=== PATIENT | female | born 1985 | race Caucasian/White ===

== ENCOUNTER 2023-10-20 08:42 | Inpatient (IN) | payer OTHER ==
[2023-10-20] MEDS: LORazepam 1 MG TAB PO STA ×2 (09:52→21:17)
[2023-10-20] MEDS: IBUPROFEN 600 MG TAB PO STA (10:08)
[2023-10-20] MEDS: ONDANSETRON ODT 4 MG TAB PO STA (10:08)
[2023-10-20 10:27] LABS: Appearance,Urine Clear (Clear); Bilirubin,Urine Negative (Negative); Blood,Urine Negative (Negative); Color,Urine Colorless; Glucose,Urine (UA) Negative (Negative); Ketones,Urine 1+ (Negative); Leukocyte Esterase,Urine Negative (Negative); Nitrite,Urine Negative (Negative); Protein,Urine Negative (Negative); Specific Gravity,Urine 1.007 (1.001-1.035); Urobilinogen,Urine <2.0 mg/dL (<2.0)
[2023-10-20 10:41] LABS: Amphetamine Screen,Urine Not Detected (NotDetected); Barbiturate Screen,Urine Not Detected (NotDetected); Benzodiazepines Screen,Urine Not Detected (NotDetected); Cocaine Screen,Urine Not Detected (NotDetected); Methadone Screen, Urine Not Detected (NotDetected); Opiate Screen,Urine Not Detected (NotDetected); Oxycodone Screen, Urine Not Detected (NotDetected); Phencyclidine Screen,Urine Not Detected (NotDetected); Tricyclic Antidepressant,Urine Not Detected (NotDetected); Urn Cannabinoid Scrn Detected (NotDetected)
--- NOTE | 2023-10-20 12:53 | ED ---
Anxiety HPI - General Chief Complaint: Anxiety Stated Complaint: Panick attack Time Seen by Provider: 10/20/23 08:51 Source: patient Mode of arrival: ambulatory - History of Present Illness Initial Comments: 38-year-old female with past medical history of bipolar disorder, noncompliant with her medications who presents to the hospital reporting anxiety symptoms. Patient reports to me that she has had symptoms of intense anxiety which started yesterday. She took one of her Xanax at home last night. Reports it is 0.5 mg but states it did not help her symptoms. States that her head is throbbing and she is nauseated due to how anxious she feels. She is currently not following with a psychiatrist. She does report to 1 previous hospitalization for mental health. States that this was greater than 10 years ago. She was receiving mood medications from her primary care doctor but she felt like they were making her a zombie and therefore she stopped them on her own. I am pulled out of the room by the patient's boyfriend. He states that they have been dating for the past 5 months and he did not have an idea that the patient had a history of bipolar until yesterday. He states that she was making suicidal statements. She told him that she was going to jump in front of a car. She stated that she wanted a knife to "just end it all". He had to call police several times due to her erratic behavior. He was able to coax her to come into the ER today. The patient denies to me any suicidal ideations. The boyfriend does fill out a petition on the patient - Related Data Home Medications: Home Medications Medication Instructions Recorded Confirmed No Known Home Medications 10/20/23 10/20/23 Allergies/Adverse Reactions: Allergies Allergy/AdvReac Type Severity Reaction Status Date / Time No Known Allergies Allergy Verified 10/20/23 16:21 Review of Systems ROS Statement: Those systems with pertinent positive or pertinent negative responses have been documented in the HPI. ROS Other: All systems not noted in ROS Statement are negative. Past Medical History History of Any Multi-Drug Resistant Organisms: None Reported Past Surgical History: Hysterectomy Past Psychological History: Anxiety, Depression Smoking Status: Vaper Past Alcohol Use History: Rare Past Drug Use History: Marijuana General Exam Limitations: no limitations General appearance: alert, other (Crying, yelling) Head exam: Present: atraumatic, normocephalic, normal inspection Eye exam: Present: normal appearance, PERRL, EOMI. Absent: scleral icterus, conjunctival injection, periorbital swelling ENT exam: Present: normal exam, mucous membranes moist Neck exam: Present: normal inspection. Absent: tenderness, meningismus, lymphadenopathy Respiratory exam: Present: normal lung sounds bilaterally. Absent: respiratory distress, wheezes, rales, rhonchi, stridor Cardiovascular Exam: Present: regular rate, normal rhythm, normal heart sounds. Absent: systolic murmur, diastolic murmur, rubs, gallop, clicks GI/Abdominal exam: Present: soft, normal bowel sounds. Absent: distended, tenderness, guarding, rebound, rigid Extremities exam: Present: normal inspection, full ROM, normal capillary refill. Absent: tenderness, pedal edema, joint swelling, calf tenderness Back exam: Present: normal inspection Neurological exam: Present: alert, oriented X3, CN II-XII intact Psychiatric exam: Present: anxious, other (Crying) Skin exam: Present: warm, dry, intact, normal color. Absent: rash Course Vital Signs 10/20/23 10/20/23 10/21/23 08:44 12:59 09:00 Temperature 98.1 F 97.9 F Pulse Rate 80 82 Respiratory 18 18 Rate Blood Pressure 173/101 110/61 124/74 O2 Sat by Pulse 98 98 Oximetry Medical Decision Making - Medical Decision Making Was pt. sent in by a medical professional or institution (KEZIA Fournier, PSYCH ASSISTANT, urgent care, hospital, or assisted...) When possible be specific @ -No Did you speak to anyone other than the patient for history (EMS, parent, family, police, friend...)? What history was obtained from this source @ -Spoke with the patient's boyfriend Did you review nursing and triage notes (agree or disagree)? Why? @ -I reviewed and agree with nursing and triage notes Were old charts reviewed (outside hosp., previous admission, EMS record, old EKG, old radiological studies, urgent care reports/EKG's, assisted records)? Report findings @ -No old charts were reviewed Differential Diagnosis (chest pain, altered mental status, abdominal pain women, abdominal pain men, vaginal bleeding, weakness, fever, dyspnea, syncope, headache, dizziness, GI bleed, back pain, seizure, CVA, palpatations, mental health, musculoskeletal)? @ -Differential Mental Health Depression, anxiety, bipolar, psychosis, schizophrenia, borderline personality, situational depression, adjustment disorder, behavioral disorder, brain tumor, malingering, substance abuse, encephalopathy, medication reaction, dementia, hypothyroidism, degenerative neurologic disorder, lupus.... This is not meant to be all-inclusive list EKG interpreted by me (3pts min.). @ -Not done X-rays interpreted by me (1pt min.). @ -None done CT interpreted by me (1pt min.). @ -None done U/S interpreted by me (1pt. min.). @ -None done What testing was considered but not performed or refused? (CT, X-rays, U/S, labs)? Why? @ -None What meds were considered but not given or refused? Why? @ -None Did you discuss the management of the patient with other professionals (professionals i.e. , PA, PSYCH ASSISTANT, lab, RT, psych nurse, social media community manager, zig zag spring machine operator, teacher, forestry technical officer, protective services case worker)? Give summary @ -Spoke with the EPS nurse who does evaluate the patient Was smoking cessation discussed for >3mins.? @ -No Was critical care preformed (if so, how long)? @ -No Were there social determinants of health that impacted care today? How? (Homelessness, low income, unemployed, alcoholism, drug addiction, transportation, low edu. Level, literacy, decrease access to med. care, prison, rehab)? @ -No Was there de-escalation of care discussed even if they declined (Discuss DNR or withdrawal of care, Hospice)? DNR status @ -No What co-morbidities impacted this encounter? (DM, HTN, Smoking, COPD, CAD, Cancer, CVA, ARF, Chemo, Hep., AIDS, mental health diagnosis, sleep apnea, morbid obesity)? @ -Bipolar disorder Was patient admitted / discharged? Hospital course, mention meds given and route, prescriptions, significant lab abnormalities, going to OR and other pertinent info. @ -Patient will be transferred to a psychiatric facility. She was petitioned by her boyfriend and certified by myself. Undiagnosed new problem with uncertain prognosis? @ -No Drug Therapy requiring intensive monitoring for toxicity (Heparin, Nitro, Insulin, Cardizem)? @ -No Were any procedures done? @ -No Diagnosis/symptom? @ -Acute depression, suicidal ideations, bipolar disorder Acute, or Chronic, or Acute on Chronic? @ -Acute Uncomplicated (without systemic symptoms) or Complicated (systemic symptoms)? @ -Complicated Side effects of treatment? @ -No Exacerbation, Progression, or Severe Exacerbation? @ -No Poses a threat to life or bodily function? How? (Chest pain, [place], [place], pneumonia, PE, COPD, DKA, ARF, appy, cholecystitis, CVA, Diverticulitis, Homicidal, Suic idal, threat to staff... and all critical care pts) @ -Yes patient actively suicidal - Lab Data Result diagrams: 10/20/23 15:23 10/20/23 15:23 Lab Results 10/20/23 10/20/23 10/20/23 Range/Units 10:03 10:03 14:54 WBC (3.8-10.6) k/uL RBC (3.80-5.40) m/uL Hgb (11.4-16.0) gm/dL Hct (34.0-46.0) % MCV (80.0-100.0) fL MCH (25.0-35.0) pg MCHC (31.0-37.0) g/dL RDW (11.5-15.5) % Plt Count (150-450) k/uL MPV Neutrophils % % Lymphocytes % % Monocytes % % Eosinophils % % Basophils % % Neutrophils # (1.3-7.7) k/uL Lymphocytes # (1.0-4.8) k/uL Monocytes # (0-1.0) k/uL Eosinophils # (0-0.7) k/uL Basophils # (0-0.2) k/uL Sodium (137-145) mmol/L Potassium (3.5-5.1) mmol/L Chloride (98-107) mmol/L Carbon Dioxide (22-30) mmol/L Anion Gap mmol/L BUN (7-17) mg/dL Creatinine (0.52-1.04) mg/dL Est GFR (CKD-EPI)AfAm (>60 ml/min/1.73 sqM) Est GFR (CKD-EPI)NonAf (>60 ml/min/1.73 sqM) Glucose (74-99) mg/dL Calcium (8.4-10.2) mg/dL Total Bilirubin (0.2-1.3) mg/dL AST (14-36) U/L ALT (4-34) U/L Alkaline Phosphatase (38-126) U/L Total Protein (6.3-8.2) g/dL Albumin (3.5-5.0) g/dL Urine Color Colorless Urine Appearance Clear (Clear) Urine pH 7.0 (5.0-8.0) Ur Specific [place] 1.007 (1.001-1.035) Urine Protein Negative (Negative) Urine Glucose (UA) Negative (Negative) Urine Ketones 1+ H (Negative) Urine Blood Negative (Negative) Urine Nitrite Negative (Negative) Urine Bilirubin Negative (Negative) Urine Urobilinogen <2.0 (<2.0) mg/dL Ur Leukocyte Esterase Negative (Negative) Urine HCG, Qual Not Detected (Not Detectd) Urine Opiates Screen Not Detected (NotDetected) Ur Oxycodone Screen Not Detected (NotDetected) Urine Methadone Screen Not Detected (NotDetected) Ur Barbiturates Screen Not Detected (NotDetected) U Tricyclic Antidepress Not Detected (NotDetected) Ur Phencyclidine Scrn Not Detected (NotDetected) Ur Amphetamines Screen Not Detected (NotDetected) U Methamphetamines Scrn Not Detected (NotDetected) U Benzodiazepines Scrn Not Detected (NotDetected) Urine Cocaine Screen Not Detected (NotDetected) U Marijuana (THC) Screen Detected H (NotDetected) SARS-CoV-2 (PCR) Not Detected (Not Detectd) 10/20/23 10/20/23 Range/Units 15:23 15:23 WBC 7.6 (3.8-10.6) k/uL RBC 4.74 (3.80-5.40) m/uL Hgb 14.2 (11.4-16.0) gm/dL Hct 43.2 (34.0-46.0) % MCV 91.3 (80.0-100.0) fL MCH 29.9 (25.0-35.0) pg MCHC 32.8 (31.0-37.0) g/dL RDW 12.7 (11.5-15.5) % Plt Count 300 (150-450) k/uL MPV 7.3 Neutrophils % 56 % Lymphocytes % 33 % Monocytes % 8 % Eosinophils % 1 % Basophils % 1 % Neutrophils # 4.3 (1.3-7.7) k/uL Lymphocytes # 2.5 (1.0-4.8) k/uL Monocytes # 0.6 (0-1.0) k/uL Eosinophils # 0.1 (0-0.7) k/uL Basophils # 0.1 (0-0.2) k/uL Sodium 139 (137-145) mmol/L Potassium 4.3 (3.5-5.1) mmol/L Chloride 110 H (98-107) mmol/L Carbon Dioxide 21 L (22-30) mmol/L Anion Gap 8 mmol/L BUN 11 (7-17) mg/dL Creatinine 0.63 (0.52-1.04) mg/dL Est GFR (CKD-EPI)AfAm >90 (>60 ml/min/1.73 sqM) Est GFR (CKD-EPI)NonAf >90 (>60 ml/min/1.73 sqM) Glucose 93 (74-99) mg/dL Calcium 9.4 (8.4-10.2) mg/dL Total Bilirubin 0.9 (0.2-1.3) mg/dL AST 30 (14-36) U/L ALT 46 H (4-34) U/L Alkaline Phosphatase 63 (38-126) U/L Total Protein 7.2 (6.3-8.2) g/dL Albumin 4.2 (3.5-5.0) g/dL Urine Color Urine Appearance (Clear) Urine pH (5.0-8.0) Ur Specific [place] (1.001-1.035) Urine Protein (Negative) Urine Glucose (UA) (Negative) Urine Ketones (Negative) Urine Blood (Negative) Urine Nitrite (Negative) Urine Bilirubin (Negative) Urine Urobilinogen (<2.0) mg/dL Ur Leukocyte Esterase (Negative) Urine HCG, Qual (Not Detectd) Urine Opiates Screen (NotDetected) Ur Oxycodone Screen (NotDetected) Urine Methadone Screen (NotDetected) Ur Barbiturates Screen (NotDetected) U Tricyclic Antidepress (NotDetected) Ur Phencyclidine Scrn (NotDetected) Ur Amphetamines Screen (NotDetected) U Methamphetamines Scrn (NotDetected) U Benzodiazepines Scrn (NotDetected) Urine Cocaine Screen (NotDetected) U Marijuana (THC) Screen (NotDetected) SARS-CoV-2 (PCR) (Not Detectd) Disposition Clinical Impression: Panic attack, Depression, Suicidal ideation Disposition: TRANSFER TO PSYCH HOSP/UNIT Instructions (If sedation given, give patient instructions): Generalized Anxiety Disorder (ED) Is patient prescribed a controlled substance at d/c from ED?: No Referrals: Nonstaff,Physician [Primary Care Provider] - 1-2 days
[2023-10-20] MEDS: ZIPRASIDONE 20 MG VIAL IM STA (13:08)
[2023-10-20] MEDS: NICOTINE 21MG/24HR PATCH TRANSDERM STA (14:58)
[2023-10-20 16:00] LABS: ALT 46 U/L (4-34); AST 30 U/L (14-36); African American GFR (CKD) >90 (>60 ml/min/1.73 sqM); Albumin 4.2 g/dL (3.5-5.0); Alkaline Phosphatase 63 U/L (38-126); Anion Gap 8 mmol/L; Blood Urea Nitrogen 11 mg/dL (7-17); Calcium 9.4 mg/dL (8.4-10.2); Carbon Dioxide 21 mmol/L (22-30); Chloride 110 mmol/L (98-107); Glucose 93 mg/dL (74-99); Non-African American GFR(CKD) >90 (>60 ml/min/1.73 sqM); Potassium 4.3 mmol/L (3.5-5.1); Sodium 139 mmol/L (137-145); Total Bilirubin 0.9 mg/dL (0.2-1.3); Total Protein 7.2 g/dL (6.3-8.2)
[2023-10-20 16:04] LABS: Basophils # (A) 0.1 k/uL (0-0.2); Basophils % (A) 1 %; Eosinophils # (A) 0.1 k/uL (0-0.7); Eosinophils % (A) 1 %; HCT 43.2 % (34.0-46.0); HGB 14.2 gm/dL (11.4-16.0); Lymphocytes # (A) 2.5 k/uL (1.0-4.8); Lymphocytes % (A) 33 %; MCH 29.9 pg (25.0-35.0); MCHC 32.8 g/dL (31.0-37.0); MCV 91.3 fL (80.0-100.0); Mean Platelet Volume 7.3; Monocytes # (A) 0.6 k/uL (0-1.0); Monocytes % (A) 8 %; Neutrophils # (A) 4.3 k/uL (1.3-7.7); Neutrophils % (A) 56 %; Platelet Count 300 k/uL (150-450); RBC 4.74 m/uL (3.80-5.40); RDW 12.7 % (11.5-15.5); WBC 7.6 k/uL (3.8-10.6)
[2023-10-21] MEDS: ONDANSETRON 4 MG TAB PO STA (10:22)
[2023-10-21] MEDS: ASPIRIN-ACET-CAFF 250-250-65MG 1 EACH TAB PO STA (10:55)
[2023-10-21] MEDS: LORazepam 1 MG TAB PO STA (12:44)
[2023-10-21] MEDS: NICOTINE 21MG/24HR PATCH TRANSDERM STA (13:48)
[2023-10-21] MEDS ORDERED: IBUPROFEN 600 MG TAB PO PRN (15:02)
[2023-10-21] MEDS ORDERED: LORazepam 2 MG/ML INJ IM PRN (15:02)
[2023-10-21] MEDS ORDERED: ACETAMINOPHEN TAB 325 MG TAB PO PRN (15:02)
[2023-10-21] MEDS ORDERED: MAG HYDROX/AL HYDROX/SIMETH 30 ML CUP PO PRN (15:02)
[2023-10-21] MEDS: QUEtiapine 25 MG TAB PO PRN (21:20)
--- NOTE | 2023-10-22 01:35 | P.CONS ---
History of Present Illness - Reason for Consult Consult date: 10/22/23 - History of Present Illness The patient is a 38-year-old female with a PMH of bipolar disorder and anxiety who had presented to the emergency room with complaints of worsening anxiety and depression. The patient was admitted to the mental health unit where she was seen and evaluated accompanied by mental health unit RN. Patient reports that she has been feeling overwhelmed recently due to multiple social stressors in cluding her boyfriend's father's . She denies any physical complaints at the time of interview. Denies experiencing chest discomfort, shortness of breath, fever, chills, cough, nausea, vomiting, abdominal pain, diarrhea. She reports vaping along with recreational marijuana use. Denies any additional illicit substance or alcohol use. Review of systems: Pertinent positives and negatives as discussed in HPI, a complete review of systems was performed and all other systems are negative. Physical examination: General: non toxic, no distress, appears at stated age, normal weight Derm: no unusual rashes/lesions, no unusual ecchymoses, warm, dry Head: atraumatic, normocephalic, symmetric Eyes: EOMI, no lid lag, anicteric sclera ENT: Nose and ears atraumatic, no thrush, no pharyngeal erythema Neck: trachea midline, supple Mouth: no lip lesion, mucus membranes moist Cardiovascular: S1S2 reg, no murmur, no edema Lungs: CTA bilateral, no rhonchi, no rales , no accessory muscle use Abdominal: soft, nontender to palpation, no guarding Ext: no gross muscle atrophy, no contractures, Neuro: No gross focal neuro deficits noted Psych: Alert, oriented, appropriate affect Assessment: Marijuana abuse, tobacco abuse Anxiety with history of bipolar disorder Imaging: None performed Data Review: Laboratory evaluation was reviewed with urine toxicology positive for marijuana, UA unremarkable, chloride 110, CO2 21, ALT 46 Plan: Advised on the importance of cessation Defer management of anxiety and bipolar disorder to primary psychiatry service Thank you for allowing us to participate in the care of this patient. We will follow peripherally. Do not hesitate to contact us with questions. Someone can be reached from the [facility] hospitalist group at all hours of the day at [phone]. Past Medical History Past Medical History: No Reported History Additional Past Medical History / Comment(s): pt reports that she had a history of HTN, but states that she has not had a problem with her blood pressure since being . pt states that she believes problems with BP stemmed from . pt denies any other PMH. History of Any Multi-Drug Resistant Organisms: None Reported Past Surgical History: Hysterectomy Past Psychological History: Anxiety, Depression Smoking Status: Current every day smoker, Vaper Past Alcohol Use History: None Reported Past Drug Use History: Marijuana Medications and Allergies Home Medications Medication Instructions Recorded Confirmed Type No Known Home Medications 10/20/23 10/20/23 History Allergies Allergy/AdvReac Type Severity Reaction Status Date / Time lactose Allergy Unknown Verified 10/21/23 21:59 Physical Exam Vitals: Vital Signs Temp Pulse Pulse Resp BP BP Pulse Ox 10/21/23 15:35 98.0 F 76 18 119/71 97 10/21/23 15:00 82 14 100/64 97 10/21/23 09:00 97.9 F 82 18 124/74 98 Intake and Output 10/21/23 10/21/23 10/22/23 14:59 22:59 06:59 Other: Weight 85.304 kg Results CBC & Chem 7: 10/20/23 15:23 10/20/23 15:23
[2023-10-22] MEDS: NICOTINE 21MG/24HR PATCH TRANSDERM SCH (09:00)
[2023-10-22 09:07] LABS: Chol/HDL Ratio 5.34 Ratio; LDL Cholesterol,Calculated 192.8 mg/dL (0.0-131.0); VLDL Calculation 19.34 mg/dL (5.00-40.00)
[2023-10-22] MEDS: lamoTRIgine 25 MG TAB PO SCH (13:52)
[2023-10-22] MEDS: busPIRone HCl 5 MG TAB PO SCH (13:52)
[2023-10-22] MEDS: MAGNESIUM HYDROXIDE 2,400 MG/30 ML CUP PO PRN (13:55)
--- NOTE | 2023-10-22 14:08 | P.HP ---
Psychiatric H&P - . H&P Date: 10/22/23 History & Physical: Allergies Allergy/AdvReac Type Severity Reaction Status Date / Time lactose Allergy Unknown Verified 10/21/23 21:59 Vital Signs Temp 97.5 F L 10/22/23 06:38 Pulse 63 10/22/23 06:38 Resp 15 10/22/23 06:38 BP 103/61 10/22/23 06:38 Pulse Ox 97 10/21/23 15:35 FiO2 Intake & Output 10/21/23 10/22/23 10/22/23 18:59 06:59 18:59 Weight 85.304 kg Laboratory Last Values WBC 7.6 k/uL (3.8-10.6) 10/20/23 15:23 RBC 4.74 m/uL (3.80-5.40) 10/20/23 15:23 Hgb 14.2 gm/dL (11.4-16.0) 10/20/23 15:23 Hct 43.2 % (34.0-46.0) 10/20/23 15:23 MCV 91.3 fL (80.0-100.0) 10/20/23 15:23 MCH 29.9 pg (25.0-35.0) 10/20/23 15:23 MCHC 32.8 g/dL (31.0-37.0) 10/20/23 15:23 RDW 12.7 % (11.5-15.5) 10/20/23 15:23 Plt Count 300 k/uL (150-450) 10/20/23 15:23 MPV 7.3 10/20/23 15:23 Neutrophils % 56 % 10/20/23 15:23 Lymphocytes % 33 % 10/20/23 15:23 Monocytes % 8 % 10/20/23 15:23 Eosinophils % 1 % 10/20/23 15:23 Basophils % 1 % 10/20/23 15:23 Neutrophils # 4.3 k/uL (1.3-7.7) 10/20/23 15:23 Lymphocytes # 2.5 k/uL (1.0-4.8) 10/20/23 15:23 Monocytes # 0.6 k/uL (0-1.0) 10/20/23 15:23 Eosinophils # 0.1 k/uL (0-0.7) 10/20/23 15:23 Basophils # 0.1 k/uL (0-0.2) 10/20/23 15:23 Sodium 139 mmol/L (137-145) 10/20/23 15:23 Potassium 4.3 mmol/L (3.5-5.1) 10/20/23 15:23 Chloride 110 mmol/L (98-107) H 10/20/23 15:23 Carbon Dioxide 21 mmol/L (22-30) L 10/20/23 15:23 Anion Gap 8 mmol/L 10/20/23 15:23 BUN 11 mg/dL (7-17) 10/20/23 15:23 Creatinine 0.63 mg/dL (0.52-1.04) 10/20/23 15:23 Est GFR (CKD-EPI)AfAm >90 (>60 ml/min/1.73 sqM) 10/20/23 15:23 Est GFR (CKD-EPI)NonAf >90 (>60 ml/min/1.73 sqM) 10/20/23 15:23 Glucose 93 mg/dL (74-99) 10/20/23 15:[address] Glu mg/dL 120 mg/dL 10/20/23 15:23 Hemoglobin A1c 5.8 % (<=6.0) 10/20/23 15:23 Calcium 9.4 mg/dL (8.4-10.2) 10/20/23 15:23 Total Bilirubin 0.9 mg/dL (0.2-1.3) 10/20/23 15:23 AST 30 U/L (14-36) 10/20/23 15:23 ALT 46 U/L (4-34) H 10/20/23 15:23 Alkaline Phosphatase 63 U/L (38-126) 10/20/23 15:23 Total Protein 7.2 g/dL (6.3-8.2) 10/20/23 15:23 Albumin 4.2 g/dL (3.5-5.0) 10/20/23 15:23 TSH 0.905 mIU/L (0.465-4.680) 10/20/23 15:23 Urine Color Colorless 10/20/23 10:03 Urine Appearance Clear (Clear) 10/20/23 10:03 Urine pH 7.0 (5.0-8.0) 10/20/23 10:03 Ur Specific [place] 1.007 (1.001-1.035) 10/20/23 10:03 Urine Protein Negative (Negative) 10/20/23 10:03 Urine Glucose (UA) Negative (Negative) 10/20/23 10:03 Urine Ketones 1+ (Negative) H 10/20/23 10:03 Urine Blood Negative (Negative) 10/20/23 10:03 Urine Nitrite Negative (Negative) 10/20/23 10:03 Urine Bilirubin Negative (Negative) 10/20/23 10:03 Urine Urobilinogen <2.0 mg/dL (<2.0) 10/20/23 10:03 Ur Leukocyte Esterase Negative (Negative) 10/20/23 10:03 Urine HCG, Qual Not Detected (Not Detectd) 10/20/23 10:03 Urine Opiates Screen Not Detected (NotDetected) 10/20/23 10:03 Ur Oxycodone Screen Not Detected (NotDetected) 10/20/23 10:03 Urine Methadone Screen Not Detected (NotDetected) 10/20/23 10:03 Ur Barbiturates Screen Not Detected (NotDetected) 10/20/23 10:03 U Tricyclic Antidepress Not Detected (NotDetected) 10/20/23 10:03 Ur Phencyclidine Scrn Not Detected (NotDetected) 10/20/23 10:03 Ur Amphetamines Screen Not Detected (NotDetected) 10/20/23 10:03 U Methamphetamines Scrn Not Detected (NotDetected) 10/20/23 10:03 U Benzodiazepines Scrn Not Detected (NotDetected) 10/20/23 10:03 Urine Cocaine Screen Not Detected (NotDetected) 10/20/23 10:03 U Marijuana (THC) Screen Detected (NotDetected) H 10/20/23 10:03 SARS-CoV-2 (PCR) Not Detected (Not Detectd) 10/20/23 14:54 10/22/23 08:58 IDENTIFYING DATA: Patient is a 38-year-old female. 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 She does admit to one previous in pt psychiatric admission 13 yrs ago r/t depression after a miscarriage but denies suicide attempt." Upon todays assessment, patient states that she has had an increase in panic attacks for the past couple weeks. Came to the hospital before she "exploded" A lot of series of "shitty events" Stressors include her boyfriends birthday, which his father on. Work problems. Lost cat, and a big event for work, went bad. States her mood here has been "fine", however, she has been sad lately. States that she has broken sleep patterns, and that her appetite is up and down. Patient denies any suicidal or homicidal ideations intent or plan. At this time patient denies any auditory or visual hallucinations. Patient denies any flight of ideas racing thoughts and increased in goal directed behavior. Patient admits to using marijuana. Does vape nicotine, and rarely consumes alcohol. PAST PSYCHIATRIC HISTORY: Patient states that she has had 1 prior admission 13 years ago after a miscarriage.. Patient is prescribed xanax by her PCP. Patient denies any psychiatric outpatient follow-up. Patient denies any history of suicide attempts in the past. PMH:As per ER note ALLERGIES: as per EMR CHEMICAL DEPENDENCY HISTORY: as per HPI FAMILY PSYCHIATRIC/SUBSTANCE USE HISTORY: denies SOCIAL HISTORY: Patient was born in [place], raised in [place]. Lives in a trailer with her boyfriend and has one child. Working on her masters degree for occupational therapy, and works currently as a GM for a [employer]. Denies legal history. MENTAL STATUS EXAM: General Appearance: Patient appears to bestated age is alert, directable, and attempts to cooperate. Patient appears to have fair hygiene and grooming. Dressed in street clothes, glasses, hair pulled into a bun. Behavior: Patient is seated without any agitated behavior. Evasive, rationalizing Speech: Patient's speech is fluent and nonpressured. Mood/Affect: Patient reports their mood is stressed, affect is congruent and constricted. Suicidality/Homicidality: Patient denies having any homicidal ideation intent or plan. Denies any suicidal ideations intent or plan Perceptions: Patient denies any visual hallucinations and denies any auditory hallucinations Though content/process: There is no evidence of any delusional thought content and thought process is linear and goal-directed. Focused on her symptoms. Memory and concentration: AOX3, grossly intact for the purposes of this session. Can spell "WORLD" backwards Judgment and insight: poor STRENGTHS/WEAKNESSES: strength is that patient is resilient. Weakness is that patient has poor judgment and is impulsive and non compliant with medication INTELLECT: average IMPRESSIONS: bipolar disorder type 1 generalized anxiety disorder with panic attacks nicotine dependance cannabis use disorder PLAN: -Patient is admitted under voluntary status to MHU for stabilization of psychiatric symptoms and safety. Patient has signed adult voluntary form and medication consent and is placed in patient's chart. -Medications : Will start patient on Lamictal 25mg bid for depression/mood stabilization. Did inform patient to watch for a rash, and to let nursing staff know if this happens. Remeron 15mg qhs for sleep/depression Buspar 15mg bid anxiety -Ativan and Haldol PRN for agitation/aggression -Patient was informed of the risks, benefits and side effects of the medication and patient verbally consented to taking the medications. -Internal Medicine consult to perform medical evaluation and physical. -NRT - nicotine patch -SW on board for discharge planning. Encourage patient to participate in groups to work on coping skills. 10/22/23 12:11 10/22/23 14:07
[2023-10-22] MEDS ORDERED: MAG HYDROX/AL HYDROX/SIMETH 355 ML BOTTLE PO PRN (15:25)
[2023-10-22] MEDS: MIRTAZAPINE 15 MG TAB PO SCH (21:10)
[2023-10-23 07:41] VITALS: TEMP 97.7
--- NOTE | 2023-10-23 12:06 | P.PN ---
Progress Note - Text Progress Note Date: 10/23/23 Interval History: Patient was seen wandering the hallways and was directable and agreeable to margot wise with property underwriter in the office. Patient states she is doing good today. She claims that she is a little groggy in the am when she woke up, until she had breakfast, but she did sleep all night. She did say that she had no problems falling asleep last night. States her appetite is good. Patient offers no other complaints. Patient is going to groups. Claims that her son is coming back home from college on Saturday at nighttime. At this time patient denies any suicidal or homical ideations, intent or plan. Patient denies any auditory, visual hallucinations and denies any paranoia or delusions. Patient denies any side effects from the medications and has been compliant with meds. MENTAL STATUS EXAM: General Appearance: Patient appears to be stated age is alert, directable, and attempts to cooperate. Patient appears to have fair hygiene and grooming. Dressed in street clothes, glasses, hair pulled into a bun. Behavior: Patient is seated without any agitated behavior. Evasive, rationalizi ng mildly improving Speech: Patient's speech is fluent and nonpressured. Mood/Affect: Patient reports their mood is happy, affect is congruent and constricted. mildly improving Suicidality/Homicidality: Patient denies having any homicidal ideation intent or plan. Denies any suicidal ideations intent or plan Perceptions: Patient denies any visual hallucinations and denies any auditory hallucinations Though content/process: There is no evidence of any delusional thought content and thought process is linear and goal-directed. Focused on her symptoms. Memory and concentration: AOX3, grossly intact for the purposes of this session. Judgment and insight: poor mildly improving IMPRESSIONS: bipolar disorder type 1 generalized anxiety disorder with panic attacks nicotine dependance cannabis use disorder PLAN: -Patient is admitted under voluntary status to [facility] for stabilization of psychiatric symptoms and safety. Patient has signed adult voluntary form and medication consent and is placed in patient's chart. -Medications : Lamictal 25mg bid for depression/mood stabilization. Did inform patient to watch for a rash, and to let nursing staff know if this happens, currently denying any rash. Remeron 15mg qhs for sleep/depression Buspar 15mg bid anxiety -Ativan and Haldol PRN for agitation/aggression -NRT - nicotine patch -SW on board for discharge planning. Encourage patient to participate in groups to work on coping skills. Likely discharge back home Saturday if patient continues to improve
--- NOTE | 2023-10-24 11:04 | P.PN ---
Progress Note - Text Progress Note Date: 10/24/23 terval History: Patient was seen wandering the hallways and was directable and agreeable to sarah billings with continuity writer in the office. Patient states she is not doing great today, due to other patients on the unit. Claims another patient is shouting outside her door, and spitting on it. So her anxiety is up.Manager People ensured patient that we will be keeping a closer eye on that patient. Patient states that her medication regimen is working good for her. She did say that she had no problems falling asleep last night. States her appetite is good. Patient offers no other complaints. Patient is going to groups. Claims that her son is coming back home from college on Saturday at nighttime. At this time patient denies any suicidal or homicidal ideations, intent or plan. Patient denies any auditory, visual hallucinations and denies any paranoia or delusions. Patient denies any side effects from the medications and has been compliant with meds. MENTAL STATUS EXAM: General Appearance: Patient appears to be stated age is alert, directable, and attempts to cooperate. Patient appears to have fair hygiene and grooming. Dressed in street clothes, glasses, hair pulled into a bun. Behavior: Patient is seated without any agitated behavior. improving Speech: Patient's speech is fluent and nonpressured. Mood/Affect: Patient reports their mood is pretty good, affect is congruent and constricted. improving Suicidality/Homicidality: Patient denies having any homicidal ideation intent or plan. Denies any suicidal ideations intent or plan Perceptions: Patient denies any visual hallucinations and denies any auditory hallucinations Though content/process: There is no evidence of any delusional thought content and thought process is linear and goal-directed. Focused on her symptoms, improving mildly Memory and concentration: AOX3, grossly intact for the purposes of this session. Judgment and insight: improving IMPRESSIONS: bipolar disorder type 1 generalized anxiety disorder with panic attacks nicotine dependance cannabis use disorder PLAN: -Patient is admitted under voluntary status to [facility] for stabilization of psychiatric symptoms and safety. Patient has signed adult voluntary form and medication consent and is placed in patient's chart. -Medications : Lamictal 25mg bid for depression/mood stabilization. Did inform patient to watch for a rash, and to let nursing staff know if this happens, currently denying any rash. Remeron 15mg qhs for sleep/depression increase Buspar 20mg bid anxiety -Ativan and Haldol PRN for agitation/aggression -NRT - nicotine patch -SW on board for discharge planning. Encourage patient to participate in groups to work on coping skills. discharge back home Saturday if patient continues to improve
[2023-10-24] MEDS: LORazepam 1 MG TAB PO PRN (18:56)
[2023-10-24] MEDS: busPIRone HCl 10 MG TAB PO SCH (20:40)
[2023-10-25 08:55] VITALS: BP 106/75; PULSE 85; RESP 18
--- NOTE | 2023-10-25 09:57 | P.DS ---
Providers Date of admission: 10/21/23 14:58 Expected date of discharge: 10/25/23 Attending physician: Darrian Bartlett MD Consults: 10/21/23 15:02 Consult Physician Routine Consulting Provider: [facility] Consult Reason/Comments: H&P and medical Do you want consulting provider notified?: Yes Primary care physician: Physician Nonstaff - Discharge Diagnosis(es) (1) Bipolar disorder Current Visit: Yes Status: Acute Priority: High (2) Generalized anxiety disorder with panic attacks Current Visit: Yes Status: Acute Priority: High (3) Nicotine dependence Current Visit: Yes Status: Acute Priority: Low (4) Cannabis use disorder Current Visit: Yes Status: Acute Priority: Medium Hospital Course: Admission HPI: Admission note was completed by brief writer "Patient presented to the hospital on 10/21 as per EPS assessment, "Pt denies SI but when brief writer reviewed the petition with her she acknowledged that she did say she would kill herself in front of the boyfriend if he told her son, who is in [place] on an academic scholarship, because it would destroy his future and he would not stay and do his mid terms because he would be on the first flight here because she's in the hospital. She does admit to one previous in pt psychiatric admission 13 yrs ago r/t depression after a miscarriage but denies suicide attempt." Upon todays assessment, patient states that she has had an increase in panic attacks for the past couple weeks. Came to the hospital before she "exploded" A lot of series of "shitty events" Stressors include her boyfriends birthday, which his father on. Work problems. Lost cat, and a big event for work, went bad. States her mood here has been "fine", however, she has been sad lately. States that she has broken sleep patterns, and that her appetite is up and down. Patient denies any suicidal or homicidal ideations intent or plan. At this time patient denies any auditory or visual hallucinations. Patient denies any flight of ideas racing thoughts and increased in goal directed behavior. Patient admits to using marijuana. Does vape nicotine, and rarely consumes alcohol." Hospital course: Upon admission to the unit patient was directable and agreeable to commence treatment and signed adult voluntary form. Patient got along well with other patients on the unit and followed unit protocol. Patient was compliant with the medications and denied any side effects throughout hospital course. Patient was started on Lamictal and increased to dose of 25 mg twice daily for depression/mood stabilization, patient was informed of the possibility of a rash on the medication, she was monitoring it and it did not occur. Remeron 15 mg nightly for sleep/mood, BuSpar 20 mg twice daily for anxiety. Patient spoke of her stressors and engaged in therapy both group and individual. Patient was also seen by medical team for history and physical exam. Throughout the course of the hospitalization patient gradually improved with regards to mood, anxiety, suicidal thoughts, sleep and became more future oriented with improved insight and judgment. On the day of discharge patient denied any suicidal or homicidal ideations intent or plan denied any auditory or visual hallucinations. Patient endorsed wanting to live for her family and her future. The patient denied any access to guns or weapons. Patient denied any paranoia and did not endorse any delusions. Patient does have a significant history of substance abuse and was counseled on abstaining from all substances including alcohol and marijuana. Patient was also counseled on the medications and need for regular compliance and was encouraged to follow-up with their outpatient appointment for mental health and also for primary care. Prior to discharge a family meeting will be a rranged by social work nurse to answer any questions and ensure safety upon discharge. Mental status exam: General Appearance: Patient appears to be overweight, stated age is alert, pleasant, and cooperative. Patient is in no acute distress and has improved hygiene and grooming Behavior: Patient is calmly seated without any agitated behavior. Speech: Patient's speech is fluent and nonpressured. Mood/Affect: Patient reports their mood is "better", affect is congruent and euthymic. Suicidality/Homicidality: Patient denies having any suicidal or homicidal ideation intent or plan. Perceptions: Patient denies any auditory or visual hallucinations. Though content/process: There is no evidence of any delusional thought content and thought process is linear and goal-directed. More future oriented Memory and concentration: AOX3, grossly intact for the purposes of this session. Can spell "WORLD" backwards correctly. Judgment and insight: improved with guarded prognosis Impression: bipolar disorder type 1 generalized anxiety disorder with panic attacks nicotine dependance cannabis use disorder Plan: -Continue with discharge today as patient has improved and stabilized psychiatrically and is not currently an imminent threat to herself and/or others. -Continue medications: Lamictal 25 mg twice daily for depression/mood stabilization, Remeron 15 mg nightly for sleep/mood, BuSpar 20 mg twice daily for anxiety. Patient was also given a 2-week supply of as needed Vistaril for anxiety. -Patient was counseled on the need for medication compliance and appropriate follow-up at mental health and also primary care for medical issues. Patient verbalized understanding and agreed. -Social work to arrange for and conduct family meeting to ensure safety upon discharge and answer any questions/concerns. Social work also to arrange for patients follow up appointments for psychiatric care along with follow up with primary care provider. -Patient counseled on abstaining from recreational drugs and marijuana and alcohol. Was informed/educated on the adverse effects on their physical and mental health. Patient verbally agreed and understood. -Patient was instructed to return to the hospital or seek immediate medical care if their psychiatric or medical symptoms do worsen or reoccur. Allergies Allergy/AdvReac Type Severity Reaction Status Date / Time lactose Allergy Unknown Verified 10/21/23 21:59 Laboratory Results WBC 7.6 k/uL (3.8-10.6) 10/20/23 15:23 RBC 4.74 m/uL (3.80-5.40) 10/20/23 15:23 Hgb 14.2 gm/dL (11.4-16.0) 10/20/23 15:23 Hct 43.2 % (34.0-46.0) 10/20/23 15:23 MCV 91.3 fL (80.0-100.0) 10/20/23 15:23 MCH 29.9 pg (25.0-35.0) 10/20/23 15:23 MCHC 32.8 g/dL (31.0-37.0) 10/20/23 15:23 RDW 12.7 % (11.5-15.5) 10/20/23 15:23 Plt Count 300 k/uL (150-450) 10/20/23 15:23 MPV 7.3 10/20/23 15:23 Neutrophils % 56 % 10/20/23 15:23 Lymphocytes % 33 % 10/20/23 15:23 Monocytes % 8 % 10/20/23 15:23 Eosinophils % 1 % 10/20/23 15:23 Basophils % 1 % 10/20/23 15:23 Neutrophils # 4.3 k/uL (1.3-7.7) 10/20/23 15:23 Lymphocytes # 2.5 k/uL (1.0-4.8) 10/20/23 15:23 Monocytes # 0.6 k/uL (0-1.0) 10/20/23 15:23 Eosinophils # 0.1 k/uL (0-0.7) 10/20/23 15:23 Basophils # 0.1 k/uL (0-0.2) 10/20/23 15:23 Sodium 139 mmol/L (137-145) 10/20/23 15:23 Potassium 4.3 mmol/L (3.5-5.1) 10/20/23 15:23 Chloride 110 mmol/L (98-107) H 10/20/23 15:23 Carbon Dioxide 21 mmol/L (22-30) L 10/20/23 15:23 Anion Gap 8 mmol/L 10/20/23 15:23 BUN 11 mg/dL (7-17) 10/20/23 15:23 Creatinine 0.63 mg/dL (0.52-1.04) 10/20/23 15:23 Est GFR (CKD-EPI)AfAm >90 (>60 ml/min/1.73 sqM) 10/20/23 15:23 Est GFR (CKD-EPI)NonAf >90 (>60 ml/min/1.73 sqM) 10/20/23 15:23 Glucose 93 mg/dL (74-99) 10/20/23 15:[address] Glu mg/dL 120 mg/dL 10/20/23 15:23 Hemoglobin A1c 5.8 % (<=6.0) 10/20/23 15:23 Calcium 9.4 mg/dL (8.4-10.2) 10/20/23 15:23 Total Bilirubin 0.9 mg/dL (0.2-1.3) 10/20/23 15:23 AST 30 U/L (14-36) 10/20/23 15:23 ALT 46 U/L (4-34) H 10/20/23 15:23 Alkaline Phosphatase 63 U/L (38-126) 10/20/23 15:23 Total Protein 7.2 g/dL (6.3-8.2) 10/20/23 15:23 Albumin 4.2 g/dL (3.5-5.0) 10/20/23 15:23 Triglycerides 96.70 mg/dL (0.00-149.00) 10/20/23 15:23 Cholesterol 261.00 mg/dL (0.00-200.00) H 10/20/23 15:23 LDL Cholesterol, Calc 192.8 mg/dL (0.0-131.0) H 10/20/23 15:23 VLDL Cholesterol, Calc 19.34 mg/dL (5.00-40.00) 10/20/23 15: HDL Cholesterol 48.90 mg/dL (40.00-60.00) 10/20/23 15: Cholesterol/HDL Ratio 5.34 Ratio 10/20/23 15: TSH 0.905 mIU/L (0.465-4.680) 10/20/23 15:23 Urine Color Colorless 10/20/23 10:03 Urine Appearance Clear (Clear) 10/20/23 10:03 Urine pH 7.0 (5.0-8.0) 10/20/23 10:03 Ur Specific Pillager 1.007 (1.001-1.035) 10/20/23 10:03 Urine Protein Negative (Negative) 10/20/23 10:03 Urine Glucose (UA) Negative (Negative) 10/20/23 10:03 Urine Ketones 1+ (Negative) H 10/20/23 10:03 Urine Blood Negative (Negative) 10/20/23 10:03 Urine Nitrite Negative (Negative) 10/20/23 10:03 Urine Bilirubin Negative (Negative) 10/20/23 10:03 Urine Urobilinogen <2.0 mg/dL (<2.0) 10/20/23 10:03 Ur Leukocyte Esterase Negative (Negative) 10/20/23 10:03 Urine HCG, Qual Not Detected (Not Detectd) 10/20/23 10:03 Urine Opiates Screen Not Detected (NotDetected) 10/20/23 10:03 Ur Oxycodone Screen Not Detected (NotDetected) 10/20/23 10:03 Urine Methadone Screen Not Detected (NotDetected) 10/20/23 10:03 Ur Barbiturates Screen Not Detected (NotDetected) 10/20/23 10:03 U Tricyclic Antidepress Not Detected (NotDetected) 10/20/23 10:03 Ur Phencyclidine Scrn Not Detected (NotDetected) 10/20/23 10:03 Ur Amphetamines Screen Not Detected (NotDetected) 10/20/23 10:03 U Methamphetamines Scrn Not Detected (NotDetected) 10/20/23 10:03 U Benzodiazepines Scrn Not Detected (NotDetected) 10/20/23 10:03 Urine Cocaine Screen Not Detected (NotDetected) 10/20/23 10:03 U Marijuana (THC) Screen Detected (NotDetected) H 10/20/23 10:03 SARS-CoV-2 (PCR) Not Detected (Not Detectd) 10/20/23 14:54 Vital Signs Temp 97.7 F 10/25/23 08:32 Pulse 85 10/25/23 08:32 Resp 18 10/25/23 08:32 BP 106/75 10/25/23 08:32 Pulse Ox 97 10/21/23 15:35 FiO2 Patient Condition at Discharge: Stable Plan - Discharge Summary Discharge Rx Participant: No New Discharge Prescriptions: New busPIRone HCl [Buspar] 20 mg PO BID 30 Days #120 tab lamoTRIgine [LaMICtal] 25 mg PO BID 30 Days #60 tab Nicotine 21Mg/24Hr Patch [Habitrol] 1 patch TRANSDERM DAILY 14 Days #14 patch Mirtazapine [Remeron] 15 mg PO HS 30 Days #30 tab hydrOXYzine pamoate [Vistaril] 50 mg PO DAILY PRN 14 Days #28 capsule PRN Reason: Anxiety Discharge Medication List Mirtazapine [Remeron] 15 mg PO HS 30 Days #30 tab 10/25/23 [Rx] Nicotine 21Mg/24Hr Patch [Habitrol] 1 patch TRANSDERM DAILY 14 Days #14 patch 10/25/23 [Rx] busPIRone HCl [Buspar] 20 mg PO BID 30 Days #120 tab 10/25/23 [Rx] hydrOXYzine pamoate [Vistaril] 50 mg PO DAILY PRN 14 Days #28 capsule 10/25/23 [Rx] lamoTRIgine [LaMICtal] 25 mg PO BID 30 Days #60 tab 10/25/23 [Rx] Follow up Appointment(s)/Referral(s): [facility] - 10/30/23 2:30 pm (10/30/2023 @1430 -15:30 paperwork 10/30/2023 @ 15:30 Violeta Collins ) Nonstaff,Physician [Primary Care Provider] - 1-2 days Patient Instructions/Handouts: Generalized Anxiety Disorder (ED) Discharge Disposition: HOME SELF-CARE
== END 2023-10-25 10:30 | disposition home or self-care (01) | DRG 885 ==
LOC: EC 08:42 → 3MHU 10-21 14:58
PROVIDERS: ADMIT Psychiatry & Neurology Psychiatry; ATTEND Psychiatry & Neurology Psychiatry
DX: F31.9 Bipolar disorder, unspecified (principal); R45.851 Suicidal ideations; Z91.148 Patient's other noncompliance with medication regimen for other reason; F12.10 Cannabis abuse, uncomplicated; I10 Essential (primary) hypertension; Z11.52 Encounter for screening for COVID-19; F41.1 Generalized anxiety disorder; F41.0 Panic disorder [episodic paroxysmal anxiety]; F17.290 Nicotine dependence, other tobacco product, uncomplicated; Z71.6 Tobacco abuse counseling; Z71.51 Drug abuse counseling and surveillance of drug abuser
CPT/HCPCS: 36415; 80053; 80061; 80306; 81003; 81025; 82075; 83036; 84443; 85025; 87635; 99285